=== PATIENT | female | born 1950 | race Caucasian/White ===

== ENCOUNTER 2017-08-10 08:51 | Inpatient (IN) ==
[2017-08-10] MEDS ORDERED: CeFAZolin Syr 2,000MG/20 ML 2,000 MG/20 ML SYRINGE IVPB ONE (09:15)
[2017-08-10] MEDS ORDERED: Ringers Solution, Lactated 1,000 ML IVC SCH (09:15)
[2017-08-10] MEDS ORDERED: Albuterol 2.5 MG/3 ML NEBULIZER IH ONE (09:15)
--- NOTE | 2017-08-10 09:18 | History & Physical Report ---
Date of Encounter: 08/10/17 Time of Encounter: 09:18 24 Hour HP Update - Instructions Instructions: If the History and Physical is less than 30 days old and was completed prior to A.M. admission and or procedure and has NOT been updated on calendar day of procedure please complete this update prior to performing procedure. - Update Patient reports changes in Medical Condition: No Changes in examination, assessment, or condition: No Changes in Medication: No Preop tests/diagnostics Reviewed: Yes Surgery Remains Indicated: Yes Consent for Planned Operative Procedure(s) Verified: Yes - Pre-Operative Checklist Preoperative Checklist Indicated: No Prophylactic Antibiotic Ordered: Yes Is VTE Prophylaxis Indicated?: Yes
--- NOTE | 2017-08-10 09:23 | Anesthesia Evaluation PreOp ---
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 Any Significant HX Other Medical History: Diabetes Type II, GERD, Other (obesity BMI=41.4) Anesthesia History: No Prior Anesthetic Complications, Past Anesthesia Alcohol Use: none Drug use: none Medications and Allergies ALPRAZolam [Xanax 1 MG Tablet] 1 mg PO QID PRN 08/10/17 [History] Albuterol Sulfate [Albuterol Inhaler] 2 puff IH Q4H PRN 08/10/17 [History] Carvedilol [Carvedilol] 3.125 mg PO BID 08/10/17 [History] Clopidogrel [Plavix] 75 mg PO DAILY 08/10/17 [History] Esomeprazole Magnesium [Nexium] 40 mg PO DAILY 08/10/17 [History] Fluticasone Propionate Nasal [Flonase] 1 spray NS DAILY 08/10/17 [History] Furosemide [Lasix] 20 mg PO TID 08/10/17 [History] Gabapentin [Neurontin] 800 mg PO QID 08/10/17 [History] Insulin Glargine,Hum.rec.anlog [Lantus Solostar] 40 unit IJ QPM 08/10/17 [ History] Insulin Glargine,Hum.rec.anlog [Lantus Solostar] 75 units IJ QAM 08/10/17 [ History] Insulin LISPRO [HumaLOG] 0 units SQ TID PRN 08/10/17 [History] Ipratropium/Albuterol Sulfate [Combivent Respimat Inhal [place]] 2 puff IH QID [History] Liraglutide [Victoza 3-Scott] 0.6 mg IJ DAILY 08/10/17 [History] OxyCODONE/APAP 10/325 [Percocet 10/325 MG] 1 tab PO Q6H PRN 08/10/17 [History] Oxygen 3 l NS AD 08/10/17 [History] Spironolactone [Aldactone] 25 mg PO DAILY 08/10/17 [History] 3 Allergy/AdvReac Type Severity Reaction Status Date / Time ezetimibe [From Zetia] Allergy Chest Pain Verified 08/10/17 09:20 Penicillins Allergy Hives Verified 08/10/17 09:20 tramadol [From Ultram] Allergy Chest Pain Verified 08/10/17 09:20 - Meds/Allergy Pre-op Review Medications Reviewed: Yes Allergies Reviewed: Yes Beta Blockers on Current Med List: Yes If Beta Blockers taken, Date/Time (Last Dose taken): 08/09/2017 at 2300 Anesthesia Results - Labs Laboratory Tests 07/23/17 07/23/17 07/23/17 12:10 12:10 12:10 WBC 7.3 Hgb 13.1 Hct 41.7 Plt Count 194 PT 10.4 INR 1.0 APTT 33.6 Sodium 139 Potassium 3.6 BUN 10 Creatinine 0.70 - Imaging EKG: report reviewed (07/23/2017 SINUS RHYTHM LOW QRS VOLTAGE IN PRECORDIAL LEADS POSSIBLE RIGHT VENTRICULAR CONDUCTION DELAY ANTERIOR MYOCARDIAL INFARCTION, OF INDETERMINATE AGE) Anesthesia Exam O2 Sat Height 1.5 m Height 1.5 m Height 1.5 m Weight 92.986 kg Weight 92.986 kg Weight 92.986 kg O2 Sat by Pulse Oximetry 96 O2 Sat by Pulse Oximetry 96 Vital Signs Temp Pulse Resp BP Pulse Ox 97.9 F 68 18 101/58 96 08/10/17 09:06 08/10/17 09:06 08/10/17 09:06 08/10/17 09:06 08/10/17 09:06 Blood Glucose* 150 Height: 4'11'' Weight: 205 lbs NPO (# of Hours): 8 Pain Scale: 8 Pain Scale Used: Numeric (1 - 10) - HEENT Pupil (Motor): EOMI Mallampati: II Teeth: Edentulous Oral Opening: Greater than 3 - MASTER ELECTRICIAN LOC: Oriented MASTER ELECTRICIAN Motor: Normal RUE, Normal LUE, Normal Face, Deficit RLE, Deficit LLE MASTER ELECTRICIAN Sensory: Normal: Face, Deficit: RUE, LUE, RLE, LLE - Cardiac Rhythm: Regular Murmur: None - Pulmonary Breath Sounds: bilateral Clear Respiratory Effort: Symmetrical Anesthesia Assess/Plan ASA Score: 3 Modified [place] Scale for Level of Consciousness: Cooperative, oriented, and tranquil Anesthetic Plan: General, Regional Monitoring Plan: Standard Monitors Recovery Plan: PACU
--- NOTE | 2017-08-10 10:16 | Discharge Summary ---
Orders not resulted at time of discharge: Pending orders 08/10/17 08:31 XR knee LT limited 1-2V [XR] Routine Hemoglobin and Hematocrit [HEME] Routine Date of Encounter: 08/16/17 Time of Encounter: 13:43 - Discharge Diagnosis (1) Arthritis of left knee Priority: Primary Status: Chronic (2) Status post total left knee replacement Priority: Primary Status: Acute (3) Morbid obesity with BMI of 40.0-44.9, adult Priority: Secondary Status: Chronic (4) History of NH (myocardial infarction) Priority: Secondary Status: Chronic (5) Coronary artery disease Priority: Secondary Status: Chronic Qualifiers: Coronary Disease-Associated Artery/Lesion type: [place] artery [place] vs. transplanted heart: [place] heart Associated angina: angina presence unspecified Qualified Code(s): I25.10 - Atherosclerotic heart disease of [place] coronary artery without angina pectoris (6) History of tobacco use Priority: Secondary Status: Chronic (7) COPD (chronic obstructive pulmonary disease) Priority: Secondary Status: Chronic Qualifiers: COPD type: unspecified COPD Qualified Code(s): J44.9 - Chronic obstructive pulmonary disease, unspecified (8) Type 2 diabetes mellitus Priority: Secondary Status: Chronic Qualifiers: Diabetes mellitus chcf insulin use: unspecified chcf insulin use status Diabetes mellitus complication status: with unspecified complications Qualified Code(s): E11.8 - Type 2 diabetes mellitus with unspecified complications (9) Acute blood loss anemia Priority: Primary Status: Acute - Hospital Course Hospital course: Ms. Gonzales is a 67 year old female Status post left total knee replacement The patient had an uneventful postoperative course. They received antibiotics and physical therapy and were discharged in stable condition. There will follow -up in the office in 2 weeks. - Time Spent with Patient Total time spent providing and/or coordinating discharge services: - Discharge Medications Prescriptions: Oxycodone HCl/Acetaminophen [Percocet 10-325 mg Tablet] 1 tab PO QID PRN 3 Days #9 tablet PRN Reason: Pain OxyCODONE/APAP 10/325 [Percocet 10/325 MG] 1 each PO QID 3 Days #12 tablet Home Medications: ALPRAZolam [Xanax 1 MG Tablet] 1 mg PO QID PRN 08/10/17 [History] Albuterol Sulfate [Albuterol Inhaler] 2 puff IH Q4H PRN 08/10/17 [History] Aspirin Enteric Coated [Aspirin EC] 325 mg PO BID #20 tablet. 08/10/17 [Rx] Carvedilol 3.125 mg PO BID 08/10/17 [History] Clopidogrel [Plavix] 75 mg PO DAILY 08/10/17 [History] Esomeprazole Magnesium [Nexium] 40 mg PO DAILY 08/10/17 [History] Fluticasone Propionate Nasal [Flonase] 1 spray NS DAILY 08/10/17 [History] Furosemide [Lasix] 20 mg PO TID 08/10/17 [History] Gabapentin [Neurontin] 800 mg PO QID 08/10/17 [History] Insulin Glargine,Hum.rec.anlog [Lantus Solostar] 40 unit IJ QPM 08/10/17 [ History] Insulin Glargine,Hum.rec.anlog [Lantus Solostar] 75 units IJ QAM 08/10/17 [ History] Insulin LISPRO [HumaLOG] 0 units SQ TID PRN 08/10/17 [History] Ipratropium/Albuterol Sulfate [Combivent Respimat Inhal [place]] 2 puff IH QID [History] Liraglutide [Victoza 3-Scott] 0.6 mg IJ DAILY 08/10/17 [History] OxyCODONE Immed Rel [Roxicodone 5 MG] 5 mg PO Q4HR PRN 5 Days #20 tablet [Rx] OxyCODONE/APAP 10/325 [Percocet 10/325 MG] 1 each PO QID 3 Days #12 tablet 08/10 [Rx] OxyCODONE/APAP 10/325 [Percocet 10/325 MG] 1 tab PO Q6H PRN 08/10/17 [History] Oxycodone HCl/Acetaminophen [Percocet 10-325 mg Tablet] 1 tab PO QID PRN 3 Days #9 tablet 08/10/17 [Rx] Oxygen 3 l NS AD 08/10/17 [History] Spironolactone [Aldactone] 25 mg PO DAILY 08/10/17 [History] Allergies/Adverse Reactions: 3 Allergy/AdvReac Type Severity Reaction Status Date / Time ezetimibe [From Zetia] Allergy Chest Pain Verified 08/10/17 09:20 Penicillins Allergy Hives Verified 08/10/17 09:20 tramadol [From Ultram] Allergy Chest Pain Verified 08/10/17 09:20 Primary care physician: Biju Davis - Patient Status Disposition: Home Health Service Condition: Good - Discharge Instructions Follow Up With: Garrett Chong DO [Partnered Physician] - 08/23/17 11:10 am Jas Ovalles MD [Partnered Physician] - 09/12/17 3:50 pm Katja Artis PAC [Physician [employer]] - 08/16/17 1:15 pm (Second followup 08/24/17 @ 8:45am) Additional Instructions: Discharge Instructions: Total Knee Replacement Please call [facility] ([phone]), your Primary Care Physician, or report to the Emergency Room if you have any of the following symptoms: Nausea, vomiting, fever greater that 101.5, swelling, chest pain, shortness of breath, increased pain/redness/drainage/odor for your incision site, numbness/ tingling, or any other concerning symptoms. ACTIVITY:Weight-bearing as tolerated. You may progress off support (crutches or walker) as tolerated. MEDICATIONS: Upon discharge resume your home medications. Take all the medications as prescribed. Take a stool softener if taking narcotic pain medications. Stool softeners are only effective if you drink enough fluids. Drink 6-8 glass of water or fluids a day, unless this is not allowed for another health problem. Despite using stool softeners, if you haven't had a bowel movement in 3 days, please switch to a gentle laxative. Gentle laxatives are sold over the counter. You should have a bowel movement within 24 hours, if not call the office. You will be discharged from the hospital with a prescription for pain medication. You are encouraged to decrease the use of narcotic pain medication as tolerated. Should you require a refill, please call the office. [facility] prescribes narcotic pain medication for only 4-6 weeks after surgery. If you require pain medication beyond this time period, you may be referred to your Primary Care Physician or to the Pain Clinic for further evaluation. Plan ahead for refills on pain medication as many narcotics either need to be picked up at the office or mailed. It is best to call 48-72 hours in advance of needing a prescription refill so you don't run out of medication. To help control the post-operative pain, you may take NSAIDs (Aleve,Advil, Motrin, Ibuprofen, Naprosyn) or Tylenol as prescribed on the bottle in addition to the pain medication. ANTICOAGULATION (blood thinners): Continue your Aspirin, Lovenox or Coumadin as prescribed to help prevent a blood clot in the leg or in the lungs. As long as your incision remains dry and you tolerate the NSAIDs (Aleve, Advil, Motrin, ibuprofen, naprosyn), it is OK to use the NSAIDS while you are taking your anticoagulation medication. Should your incision start to drain, stop the NSAID and contact our office. Common symptoms of blood clot in the legs include: localized pain, swelling, calf tenderness, redness or discoloration of the skin. Blood clot in the lung symptoms include: shortness of breath, rapid pulse, sweating, and chest pain that worsens with deep breathing, coughing up blood, lightheadedness, feelings of anxiety. If you experience any of these symptoms notify your physician immediately, go to the emergency room, or if having trouble breathing, call 911. WOUND CARE: Leave the dressing on for 7 to 10days. You may change the dressing if it becomes saturated greater than 50%. Do not get the dressing wet at anytime. Wash your hands with antibacterial soap, rinse and dry prior to any wound care. If you have anamika the visiting nurse or rehab facility can remove the stapes 10-14 days after surgery and place steri-strips across the wound. Leave the steri-strips in place until they fall off on their won. You may let water from the shower run on top of the steri-strips. If you do not have a visiting nurse or rehab facility, you will need to return to the office at 10-14 days for the anamika to be removed. If you have itching or redness around the dressing call the office. FOLLOW-UP: Please follow up with your surgeon in the orthopedic clinic in 4 weeks from the day of surgery. If you have anamika that need to be removed, you will need to come back to the office in 10-14 days from the day of surgery.
[2017-08-10] MEDS ORDERED: ROPIVACAINE HCL/PF 0.5% 30 ML VIAL ONE (10:26)
[2017-08-10] MEDS ORDERED: Bupivacaine/Clonidine Syringe 1 EACH SYRINGE ONE (10:27)
[2017-08-10] MEDS ORDERED: *HR* Midazolam HCl 2 MG/2 ML VIAL ONE (10:30)
[2017-08-10] MEDS ORDERED: *HR* FentaNYL (PF) 100 MCG/2 ML VIAL ONE ×2 (10:30→11:36)
[2017-08-10] MEDS ORDERED: Ethanol\\Acetic Acid\\Na Ace\\Ben 1,000 ML IRRIG.SOLN IR ONE (10:45)
[2017-08-10] MEDS ORDERED: Lidocaine -MPF 2% 2 ML VIAL ONE (11:35)
[2017-08-10] MEDS ORDERED: *HR* Succinylcholine 200 MG/10 ML VIAL IVP ONE (11:35)
[2017-08-10] MEDS ORDERED: Lidocaine -MPF 4% 5 ML AMPUL ONE (11:35)
[2017-08-10] MEDS ORDERED: *HR* Propofol 200 MG/20 ML VIAL IVP ONE (11:35)
[2017-08-10] MEDS ORDERED: Ondansetron 4 MG/2 ML VIAL ONE (11:41)
[2017-08-10] MEDS ORDERED: Dexamethasone 4 MG/ML VIAL ONE (11:41)
[2017-08-10] MEDS ORDERED: *HR* Labetalol 20 MG/4 ML SYRINGE IVP PRN (11:42)
[2017-08-10] MEDS ORDERED: *HR* OxyCODONE Immed Rel 5 MG TABLET PO PRN (11:42)
--- NOTE | 2017-08-10 11:47 | Anesthesia Procedures ---
Date of Encounter: 08/10/17 Time of Encounter: 10:44 Procedures: Anesthesia - Nerve Block Procedure Date: 08/10/17 Time: 10:44 Surgical Procedure: left total knee, robotic Checklist: Correct Patient Identifier, Correct procedure, History checked Correct side: Left Blood Thinner: Yes (off 4 days) Monitor Applied: BP, Pulse Oximetry Supplemental Oxygen via Nasal Cannula (L/min): 2 Sedation: Versed (mg): 2 Sedation: Fentanyl (mcg): 100 Indication: Post Op Analgesia Block Type: Other (ipack and abductor canal ) Catheter placed: No Sterile Technique: Yes Ultrasound used: Yes Anatomy identified: Yes Visual spread of Local: Yes Neuro Stimulation: No Blood on Needle Aspiration: No Smooth Injection of Local: Yes Pain with Injection of Local: No Prep: Chlorhexadine Needle: 22 x 50 mm Stimuplex, 21 x 100 mm Stimuplex Local: 0.25% Bupivicaine w/Clonidine 20 mcg/cc (35ml on ipack ), Ropivacaine ( 30ml 0.5% rop plain, ) Volume (cc): 65 Number of Attempts: 1 Complications: None/effective block Vitals: vss though out, block per request of surgeon.
[2017-08-10] MEDS ORDERED: *HR* Morphine 10 MG/ML VIAL ONE (12:10)
[2017-08-10] MEDS ORDERED: Acetaminophen IV 1,000 MG/100 ML INFUS..BTL IVPB ONE (12:27)
--- NOTE | 2017-08-10 12:28 | Orthopedic Operative Note ---
Date of procedure: 08/10/17 Pre-op diagnosis: Knee arthritis left Post-op diagnosis: same Procedure: Procedure: Left robotic-assisted Total knee replacement Estimated blood loss: 400 cc Hardware: Metal and polyethylene replacement. [place] Femur: 2 Tibia:3 TS insert: 11 Patella: 36 Exam Under anesthesia: 1 degree hyperextension 3 degrees varus as calculated by the robot full flexion and no instability Procedural Notes: Grade 3 changes all 3 compartments Operative procedure: The patient was brought to the operating room and placed on the operating room table. After general anesthesia was administered the operative knee was examined. Findings were noted in the exam under anesthesia. The operative extremity was prepped and draped in sterile surgical fashion. The patient received IV antibiotics prior to skin incision. A standard midline incision was made centered over the patella. The incision was made through the skin and subcutaneous tissue. A medial parapatellar tendon approach was performed. Care was taken to preserve tissue along the medial aspect of the patella. And to protect the patella tendon. The deep MCL was released off the medial tibia. The infra patella fat pad was excised. The patella was everted and cut was made at the level of the insertion of the quadriceps and patella tendon. The patella was sized to 36 the guide was seated and the lug holes are drilled. Knee was brought into flexion. Patient noted to have grade 3 changes all 3 compartments Steinmann pins were placed in the tibia and the femur for the tibial and femoral arrays respectively. Checkpoints were also placed in the tibia and the femur for calculation purposes. The knee including the femur and the tibial registered. Osteophytes, ACL and PCL were excised at this point. Extension and flexion were assessed with a valgus stress components were adjusted on the computer to balance the knee. Femoral cuts were made first with robotic assistance, these included the anterior cut posterior cuts chamfer cuts. Tibial cut was then performed with robotic assistance as well. Bone fragments were removed, as well as the medial and lateral meniscus. The size 2 femoral guide was seated box cut was made lug holes are drilled. The size 3 tibial tray was seated and prepared with the fin cutter. Trial reduction with the 11 TS Kayla revealed extension of 0 degree and 1 degree varus full flexion. No varus valgus instability. Trial reduction revealed excellent patella tracking. All trial components were removed all bony surfaces were irrigated. The Tibia was seated followed by the femur, The Kayla size 11 was seated and secured patella. Patient had similar findings for motion and stability. The knee was closed by the PA. The knee was then irrigated out with 2 L of pulse irrigation. The extensor mechanism was closed with #2 FiberWire suture and #2 PDS suture. The subcutaneous tissue was then irrigated and closed deep with #1 PDS suture superficially with 0 PDS suture and skin was closed with zip tie The patient was then placed in a sterile dressing and a postoperative brace extubated and transferred to recovery room in stable condition. Anesthesia: GETA Surgeon: Jas Ovalles Was there an tourist information assistant present: No Estimated blood loss (cc): 400 Condition: stable Disposition: PACU
[2017-08-10] MEDS: MORPHINE SUL Oral CONC 10 MG/0.5 ML ORAL.SYG SL PRN ×2 (13:00→13:10)
[2017-08-10 13:37] LABS: Hematocrit 33.8 % (35.3-44.9); Hemoglobin 10.7 g/dL (11.5-15.4)
--- NOTE | 2017-08-10 14:00 | Anesthesia Evaluation Post Op ---
Date of Encounter: 08/10/17 Time of Encounter: 13:59 - Vital Signs Vital Signs: Vital Signs/O2 Sat, Most Current Temp Pulse Resp BP Pulse Ox 97.3 F L 63 16 84/41 99 08/10/17 13:36 08/10/17 13:56 08/10/17 13:56 08/10/17 13:56 08/10/17 13:56 - Lungs Lungs: Clear Ascult./Percussion - Airway Airway: Non-obstructed - Cardiovascular Regular Rate - Mental Status Mental Status: Alert & Oriented, Answers Appropriately - Pain Pain Scale: 6 Pain Scale used: Numeric (1 - 10) - Nausea Vomiting Nausea Vomiting: Not Present - Hydration Hydration: Ice chips, Has not voided - Discharge PostOp Status: Transfer Patient to floor
[2017-08-10] MEDS ORDERED: Sennosides 8.6 MG TABLET PO PRN (14:28)
[2017-08-10] MEDS ORDERED: Dextrose Gel 15 GM/37.5 ML TUBE PO PRN ×2 (14:28)
[2017-08-10] MEDS ORDERED: Ondansetron 4 MG/2 ML VIAL IVP PRN (14:28)
[2017-08-10] MEDS ORDERED: Acetaminophen 325 MG TABLET PO PRN (14:28)
[2017-08-10] MEDS ORDERED: MOM Conc 10 ML UD.LIQ PO PRN (14:28)
[2017-08-10] MEDS ORDERED: ALPRAZolam 1 MG TABLET PO PRN (14:28)
[2017-08-10] MEDS ORDERED: Temazepam 15 MG CAPSULE PO PRN (14:28)
[2017-08-10] MEDS ORDERED: *HR* Dextrose 50 % in Water (Syg) 50 ML SYRINGE IVP PRN (14:28)
[2017-08-10] MEDS ORDERED: D5% in Water 1,000 ML IVC PRN (14:28)
[2017-08-10] MEDS ORDERED: NON-FORMULARY MEDICATION 1 EACH EACH (Oxygen [Oxygen] 3 L) NS SCH (14:28)
[2017-08-10] MEDS ORDERED: Naloxone 0.4 MG/ML INJ IVP PRN (14:28)
[2017-08-10] MEDS: *HR* OxyCODONE/APAP 5/325 TABLET PO PRN (15:10)
--- NOTE | 2017-08-10 15:42 | Physician Discharge Referral ---
Home Health/Hosp Referral Info Transfer to: Home Health Attending Provider: Dr Ovalles - Diagnosis (1) Arthritis of left knee Priority: Primary Status: Chronic (2) Status post total left knee replacement Priority: Primary Status: Acute (3) Morbid obesity with BMI of 40.0-44.9, adult Priority: Secondary Status: Chronic (4) History of [place] (myocardial infarction) Priority: Secondary Status: Chronic (5) Coronary artery disease Priority: Secondary Status: Chronic (6) History of tobacco use Priority: Secondary Status: Chronic (7) COPD (chronic obstructive pulmonary disease) Priority: Secondary Status: Chronic (8) Type 2 diabetes mellitus Priority: Secondary Status: Chronic - Respiratory Orders Smoking Cessation: Smoking cessation has been advised. For more information, call the [employer] Tobacco Quit Line at 7-177-DZML-NOW. - Dressing/Wound Care Site: left knee Type of Dressing/Treatments w/Frequency: Opsite placed. Keep dressing intact until first follow up appointment. If > 50% saturated, notify office, remove dressing and place appropriate dressing back in place. Leave Zipline intact. Opsite dressing is water resistant, not water- proof. OK to shower, but do not get dressing wet. - Diet/Nutrition Diet/Nutrition Orders: Regular - Activity Activity Orders: Up ad kike, Ambulate, Chair, Walker Activity: List: Total Knee replacement Precautions x 6 weeks Apply cold therapy wrap 3-6x/day for 20 minutes at a time. Encourage ambulation throughout the day and incentive spirometer 10x/hour. Elevate affected extremity above heart as tolerated. Brace: Wear knee immobilizer at night x 2 weeks. - Services Needed Following services are medically necessary services: Nursing, Home Health Aide, Physical Therapy, Occupational Therapy - Transfer Medications Home Medications: ALPRAZolam [Xanax 1 MG Tablet] 1 mg PO QID PRN 08/10/17 [History] Albuterol Sulfate [Albuterol Inhaler] 2 puff IH Q4H PRN 08/10/17 [History] Aspirin Enteric Coated [Aspirin EC] 325 mg PO BID #20 tablet. 08/10/17 [Rx] Carvedilol 3.125 mg PO BID 08/10/17 [History] Clopidogrel [Plavix] 75 mg PO DAILY 08/10/17 [History] Esomeprazole Magnesium [Nexium] 40 mg PO DAILY 08/10/17 [History] Fluticasone Propionate Nasal [Flonase] 1 spray NS DAILY 08/10/17 [History] Furosemide [Lasix] 20 mg PO TID 08/10/17 [History] Gabapentin [Neurontin] 800 mg PO QID 08/10/17 [History] Insulin Glargine,Hum.rec.anlog [Lantus Solostar] 40 unit IJ QPM 08/10/17 [ History] Insulin Glargine,Hum.rec.anlog [Lantus Solostar] 75 units IJ QAM 08/10/17 [ History] Insulin LISPRO [HumaLOG] 0 units SQ TID PRN 08/10/17 [History] Ipratropium/Albuterol Sulfate [Combivent Respimat Inhal [place]] 2 puff IH QID [History] Liraglutide [Victoza 3-Scott] 0.6 mg IJ DAILY 08/10/17 [History] OxyCODONE Immed Rel [Roxicodone 5 MG] 5 mg PO Q4HR PRN 5 Days #20 tablet [Rx] OxyCODONE/APAP 10/325 [Percocet 10/325 MG] 1 tab PO Q6H PRN 08/10/17 [History] Oxygen 3 l NS AD 08/10/17 [History] Spironolactone [Aldactone] 25 mg PO DAILY 08/10/17 [History] Allergies/Adverse Reactions: 3 Allergy/AdvReac Type Severity Reaction Status Date / Time ezetimibe [From Zetia] Allergy Chest Pain Verified 08/10/17 09:20 Penicillins Allergy Hives Verified 08/10/17 09:20 tramadol [From Ultram] Allergy Chest Pain Verified 08/10/17 09:20 Certification: Further, I certify that my clinical findings support that this patient is homebound (i.e. absences from home require considerable and taxing effort and are for medical reasons or holiness services or infrequently or short duration when for other reasons) because: Homebound Reason: Post-surgery restriction and or conditions limit ability to leave home Attestation: My signature below is to certify that this patient is under my care and that I, or nurse practitioner, or a physician lead recreation assistant working with me, has a face-to- face encounter with this patient.
--- NOTE | 2017-08-10 15:47 | Physician Discharge Referral ---
ExtendedCare Referral Info Transfer To: [facility] Provider in Charge: Dr Ovalles - Diagnosis (1) Arthritis of left knee Priority: Primary Status: Chronic (2) Status post total left knee replacement Priority: Primary Status: Acute (3) Morbid obesity with BMI of 40.0-44.9, adult Priority: Secondary Status: Chronic (4) History of IL (myocardial infarction) Priority: Secondary Status: Chronic (5) Coronary artery disease Priority: Secondary Status: Chronic (6) History of tobacco use Priority: Secondary Status: Chronic (7) COPD (chronic obstructive pulmonary disease) Priority: Secondary Status: Chronic (8) Type 2 diabetes mellitus Priority: Secondary Status: Chronic Expected Duration of Placement: less than 30 days Prognosis: Good Aware of Diagnosis: Patient Aware of Prognosis: Patient - Transfer Medications Prescriptions: Oxycodone HCl/Acetaminophen [Percocet 10-325 mg Tablet] 1 tab PO QID PRN 3 Days #9 tablet PRN Reason: Pain OxyCODONE/APAP 10/325 [Percocet 10/325 MG] 1 each PO QID 3 Days #12 tablet Home Medications: ALPRAZolam [Xanax 1 MG Tablet] 1 mg PO QID PRN 08/10/17 [History] Albuterol Sulfate [Albuterol Inhaler] 2 puff IH Q4H PRN 08/10/17 [History] Aspirin Enteric Coated [Aspirin EC] 325 mg PO BID #20 tablet. 08/10/17 [Rx] Carvedilol 3.125 mg PO BID 08/10/17 [History] Clopidogrel [Plavix] 75 mg PO DAILY 08/10/17 [History] Esomeprazole Magnesium [Nexium] 40 mg PO DAILY 08/10/17 [History] Fluticasone Propionate Nasal [Flonase] 1 spray NS DAILY 08/10/17 [History] Furosemide [Lasix] 20 mg PO TID 08/10/17 [History] Gabapentin [Neurontin] 800 mg PO QID 08/10/17 [History] Insulin Glargine,Hum.rec.anlog [Lantus Solostar] 40 unit IJ QPM 08/10/17 [ History] Insulin Glargine,Hum.rec.anlog [Lantus Solostar] 75 units IJ QAM 08/10/17 [ History] Insulin LISPRO [HumaLOG] 0 units SQ TID PRN 08/10/17 [History] Ipratropium/Albuterol Sulfate [Combivent Respimat Inhal [place]] 2 puff IH QID [History] Liraglutide [Victoza 3-Scott] 0.6 mg IJ DAILY 08/10/17 [History] OxyCODONE Immed Rel [Roxicodone 5 MG] 5 mg PO Q4HR PRN 5 Days #20 tablet [Rx] OxyCODONE/APAP 10/325 [Percocet 10/325 MG] 1 each PO QID 3 Days #12 tablet 08/10 [Rx] OxyCODONE/APAP 10/325 [Percocet 10/325 MG] 1 tab PO Q6H PRN 08/10/17 [History] Oxycodone HCl/Acetaminophen [Percocet 10-325 mg Tablet] 1 tab PO QID PRN 3 Days #9 tablet 08/10/17 [Rx] Oxygen 3 l NS AD 08/10/17 [History] Spironolactone [Aldactone] 25 mg PO DAILY 08/10/17 [History] Allergies/Adverse Reactions: 3 Allergy/AdvReac Type Severity Reaction Status Date / Time ezetimibe [From Zetia] Allergy Chest Pain Verified 08/10/17 09:20 Penicillins Allergy Hives Verified 08/10/17 09:20 tramadol [From Ultram] Allergy Chest Pain Verified 08/10/17 09:20 - Respiratory Orders Smoking Cessation: Smoking cessation has been advised. For more information, call the [place] Tobacco Quit Line at 2-135-TEXD-NOW. - Ancillary Orders May use pressure relief devices daily prn, May go on OCTAVIO w/family/respon constitution party w /meds at nurse discretion PRN, May consult with Dentist, Medical Practice Assistant, Bow Maker Custom PRN - Mobility Orders Chair, Ambulate - Rehabiliation Orders Rehab Potential: Good Rehab Orders: Evaluation for Physical Therapy, Evaluation for Occupational Therapy Other: Total Knee replacement Precautions x 6 weeks Apply cold therapy wrap 3-6x/day for 20 minutes at a time. Encourage ambulation throughout the day and incentive spirometer 10x/hour. Elevate affected extremity above heart as tolerated. Brace: Wear knee immobilizer at night x 2 weeks. - Treatments Skin tear care topically daily PRN per policy List/Other: Opsite placed. Keep dressing intact until first follow up appointment. If > 50% saturated, notify office, remove dressing and place appropriate dressing back in place. Leave Zipline intact. Opsite dressing is water resistant, not water- proof. OK to shower, but do not get dressing wet. - Diet Orders Regular CERTIFICATION: I certify that the transfer of the above named patient to an Extended Care Facility is necessary for the continuing treatment of the diagnosis listed. The above information is true and accurate reflection of patient's current condition. Confidential - Redisclosure prohibited without a patient's written consent.
[2017-08-10] MEDS: Gabapentin 400 MG CAPSULE PO SCH ×3 (17:39→20:27)
[2017-08-10] MEDS: Insulin LISPRO 300 UNITS/3 ML VIAL SQ SCH ×3 (17:39→20:45)
[2017-08-10] MEDS: Patient Taking Own Medication 1 EACH IH SCH ×2 (17:40→20:27)
[2017-08-10] MEDS: CeFAZolin Premix DUPLEX 2,000 MG/50 ML BAG IVPB SCH (17:47)
[2017-08-10] MEDS: Furosemide 20 MG TABLET PO SCH ×2 (17:47→20:26)
[2017-08-10] MEDS: *HR* Enoxaparin 30 MG/0.3 ML SYRINGE SQ SCH (17:48)
[2017-08-10] MEDS ORDERED: Insulin DETEMIR 100 UNIT/ML X5UNITS SQ SCH ×2 (18:00→21:00)
[2017-08-10] MEDS ORDERED: *HR* Enoxaparin 30 MG/0.3 ML SYRINGE SQ SCH (18:00)
[2017-08-10] MEDS: *HR* OxyCODONE Immed Rel 5 MG TABLET PO PRN (19:12)
[2017-08-10] MEDS: Ringers Solution, Lactated 1,000 ML IVC SCH (21:29)
[2017-08-10] MEDS: Insulin DETEMIR 100 UNIT/ML X5UNITS SQ SCH (21:29)
[2017-08-11] MEDS: CeFAZolin Premix DUPLEX 2,000 MG/50 ML BAG IVPB SCH (00:40)
[2017-08-11] MEDS: *HR* OxyCODONE Immed Rel 5 MG TABLET PO PRN ×2 (01:03→05:11)
[2017-08-11] MEDS: *HR* Enoxaparin 30 MG/0.3 ML SYRINGE SQ SCH ×2 (05:11→16:32)
[2017-08-11 07:23] LABS: BUN/Creatinine Ratio 28 (6-26); Blood Urea Nitrogen 19 mg/dL (8-23); Calcium 8.8 mg/dL (8.6-10.3); Carbon Dioxide 24 mEq/L (23-29); Chloride 103 mEq/L (98-107); Glucose 306 mg/dL (70-105); Osmolality,Calculated 292 (280-300); Potassium 4.2 mEq/L (3.5-5.1); Sodium 134 mEq/L (136-145); eGFR For African Americans > 60 (> 60); eGFR For Non-African Americans > 60 (> 60)
[2017-08-11] MEDS: Furosemide 20 MG TABLET PO SCH ×3 (08:09→19:58)
[2017-08-11] MEDS: Spironolactone 25 MG TABLET PO SCH (08:09)
[2017-08-11] MEDS: Gabapentin 400 MG CAPSULE PO SCH ×5 (08:22→19:57)
[2017-08-11] MEDS: Insulin LISPRO 300 UNITS/3 ML VIAL SQ SCH ×4 (08:22→21:43)
[2017-08-11] MEDS: Fluticasone Propionate Nasal 50 MCG/SPRAY BOTTLE NS SCH (08:23)
[2017-08-11] MEDS: Insulin DETEMIR 100 UNIT/ML X5UNITS SQ SCH ×2 (08:23→19:58)
[2017-08-11] MEDS: Patient Taking Own Medication 1 EACH IH SCH ×3 (08:23→16:33)
[2017-08-11] MEDS: Patient Taking Own Medication 1 EACH PO SCH (08:23)
[2017-08-11 08:34] LABS: Hematocrit 27.5 % (35.3-44.9); Hemoglobin 8.8 g/dL (11.5-15.4)
[2017-08-11] MEDS: *HR* OxyCODONE/APAP 5/325 TABLET PO PRN ×2 (09:56→16:32)
--- NOTE | 2017-08-11 11:12 | Orthopedics Progress Note ---
Date of Encounter: 08/11/17 Time of Encounter: 11:10 Subjective Principal diagnosis: Status post left total knee replacement Interval history: The patient is without complaints. Afebrile vital signs are stable. In knee immobilizer. Neurovascularly intact with regard to bilateral lower extremities. Assessment :stable. Plan mobilize ,continue analgesics, discharge planning. We will recheck hemoglobin and hematocrit prior to discharge. Objective Vital signs: Vital Signs Temp Pulse Resp BP Pulse Ox 08/11/17 11:08 98.7 F 80 16 93/56 99 08/11/17 07:24 98.0 F 71 16 94/57 92 08/11/17 04:36 98.1 F 80 16 109/64 92 08/11/17 00:43 98.3 F 84 16 124/74 96 08/10/17 19:59 85 99/63 08/10/17 19:21 97.6 F 84 14 100/61 98 08/10/17 17:55 92 113/52 99 08/10/17 16:05 97 F L 88 16 94/50 100 08/10/17 15:00 97.9 F 71 16 100/63 100 08/10/17 14:29 97.9 F 75 84/51 100 08/10/17 14:16 71 16 91/46 100 08/10/17 14:06 97.6 F 63 16 97/53 100 08/10/17 13:56 63 16 84/41 99 08/10/17 13:46 61 16 94/45 100 08/10/17 13:36 97.3 F L 67 16 95/46 100 08/10/17 13:26 60 16 86/44 100 08/10/17 13:16 60 16 97/53 99 08/10/17 13:06 97.7 F 63 16 85/52 100 08/10/17 12:56 58 16 98/55 99 08/10/17 12:46 58 16 90/41 100 08/10/17 12:36 97.0 F L 66 16 88/54 100 Intake and Output 08/10/17 08/11/17 08/11/17 23:59 07:59 15:59 Intake Total 50 / 50 400 / 400 360 / 360 Output Total 250 / 250 1300 / 1300 900 / 900 Balance -200 / -200 -900 / -900 -540 / -540 Intake: IV Fluids 50 / 50 Ancef Premix DUPLEX 2,000 mg In 50 / 50 50 ml @ 100 mls/hr IVPB Q8HR DAVID Rx#:[id number] Oral 400 / 400 360 / 360 Output: Urine 250 / 250 1300 / 1300 900 / 900 Other: Meal Breakfast Percent of Meal Consumed 100% Blood Glucose* [phone] - Labs CBC & BMP: 08/11/17 08:24 08/11/17 06:36 Labs: Abnormal lab results Hgb 8.8 g/dL (11.5-15.4) L D 08/11/17 08:24 Hct 27.5 % (35.3-44.9) L 08/11/17 08:24 Sodium 134 mEq/L (136-145) L 08/11/17 06:36 BUN/Creatinine Ratio 28 (6-26) H 08/11/17 06:36 Glucose 306 mg/dL (70-105) H 08/11/17 06:36 POC Glucose 386 (58-89) H 08/10/17 20:28 - VTE Documentation of Mechanical Device: Venous foot pump, device Consult Discharge Plan - Plan Referrals: Biju Davis DO [Primary Care Provider] - Prescriptions: Oxycodone HCl/Acetaminophen [Percocet 10-325 mg Tablet] 1 tab PO QID PRN 3 Days #9 tablet PRN Reason: Pain OxyCODONE/APAP 10/325 [Percocet 10/325 MG] 1 each PO QID 3 Days #12 tablet
[2017-08-12] MEDS: *HR* OxyCODONE Immed Rel 5 MG TABLET PO PRN ×3 (01:31→14:33)
[2017-08-12] MEDS: *HR* Enoxaparin 30 MG/0.3 ML SYRINGE SQ SCH (05:24)
[2017-08-12 06:15] LABS: Hemoglobin 8.2 g/dL (11.5-15.4)
[2017-08-12 06:39] LABS: BUN/Creatinine Ratio 19 (6-26); Blood Urea Nitrogen 14 mg/dL (8-23); Carbon Dioxide 26 mEq/L (23-29); Chloride 104 mEq/L (98-107); Glucose 135 mg/dL (70-105); Osmolality,Calculated 285 (280-300); Potassium 4.4 mEq/L (3.5-5.1); Sodium 136 mEq/L (136-145); eGFR For African Americans > 60 (> 60); eGFR For Non-African Americans > 60 (> 60)
[2017-08-12] MEDS: *HR* OxyCODONE/APAP 5/325 TABLET PO PRN (06:40)
[2017-08-12] MEDS ORDERED: Furosemide 20 MG/2 ML VIAL IVP PRN (08:14)
[2017-08-12] MEDS ORDERED: 0.9 % Sodium Chloride 250 ML IVC SCH (08:15)
[2017-08-12] MEDS: Spironolactone 25 MG TABLET PO SCH (08:42)
[2017-08-12] MEDS: Gabapentin 400 MG CAPSULE PO SCH ×2 (08:42→13:22)
[2017-08-12] MEDS: Furosemide 20 MG TABLET PO SCH ×2 (08:42→14:49)
[2017-08-12] MEDS: Insulin DETEMIR 100 UNIT/ML X5UNITS SQ SCH (08:43)
[2017-08-12] MEDS: Insulin LISPRO 300 UNITS/3 ML VIAL SQ SCH ×2 (08:52→11:23)
[2017-08-12] MEDS: Patient Taking Own Medication 1 EACH IH SCH ×2 (08:53→13:21)
[2017-08-12] MEDS: Fluticasone Propionate Nasal 50 MCG/SPRAY BOTTLE NS SCH (08:54)
[2017-08-12] MEDS: Patient Taking Own Medication 1 EACH PO SCH (08:54)
[2017-08-12] MEDS: Ringers Solution, Lactated 1,000 ML IVC SCH (13:54)
[2017-08-12 14:40] VITALS: BP 160/84
== END 2017-08-12 17:30 | disposition home health service (06) | DRG 470 ==
LOC: SAMDAY 08:51 → 3NENU 14:20
PROVIDERS: ADMIT Orthopaedic Surgery; ATTEND Orthopaedic Surgery